=== PATIENT | female | born 1990 ===

== ENCOUNTER 2024-09-30 14:11 | Outpatient (CLI) | payer OTHER | END 2024-09-30 14:21 | disposition home or self-care (01) | LOC: MRI 14:11 | PROVIDERS: ATTEND Psychiatry & Neurology Neurology | DX: R51.9 Headache, unspecified (principal); A69.29 Other conditions associated with Lyme disease; A69.20 Lyme disease, unspecified; R53.1 Weakness | CPT/HCPCS: 70551; 72158 ==